=== PATIENT | male | born 1965 | race Caucasian/White ===

== ENCOUNTER 2016-09-07 12:54 | Emergency (ER) | payer MEDICARE ==
[~2016-09-07] VITALS: Ht 190.5 cm; Wt 108.9 kg
[~2016-09-07 12:54] MED LIST: AMBIEN10 M1 PO; ANUSOL HC30 GM R; AUGMENTIN 875 M1 TAB PO; BENADRYL25 M2 PO; BENADRYL25 MG; BENADRYL50 MG PO; CARTIA XT180 MG PO; CHANTIX1 M1 PO; CIPROFLOXACIN500 MG PO; CLINDAMYCIN HC300 MG PO; CORDROL20 MG PO; CYCLOBENZAPRINE10 MG PO; DAYPRO600 M1 PO; EES400 MG PO; ERYTHROMYCIN OPH1 GM OPH; FLAGYL500 MG PO; FLEXERIL10 MG PO; FLONASE ALLERG9.9 ML NAS; FOLIC ACID1 MG PO; IBU-8800 MG PO; IRON324 M1 PO; KELP TABLETS1 TAB PO; KELP1 TAB PO; LASIX40 MG PO; LEVOFLOXACIN500 MG PO; LYRICA50 MG PO; MAXALT10 MG; MAXALT10 MG PO; MEDROL DOSEPAK4 MG PO; MOBIC7.5 MG PO; MOTRIN800 MG PO; NAPROSYN500 MG PO; NASONEX0.05 MG/AC NAS; NASONEX0.05 MG/AC NS; NEURONTIN600 MG PO; NEURONTIN800 MG PO; NORFLEX100 MG PO; OXYGEN NAS; PERCOCET 325 MG1 TA2 PO; PHENERGAN W/DM120 ML PO; POTASSIUM20 MEQ PO; PREDNICOT20 MG PO; PREDNISONE10 MG PO; PREDNISONE20 MG PO; PRILOSEC20 MG PO; PYRIDIUM200 MG PO; ROBAXIN500 MG PO; ROBAXIN750 MG PO; ROBITUSSIN DM 105 ML PO; ROBITUSSIN DM120 ML PO; SPIRIVA18 MCG PO; TORADOL10 MG PO; TRAMADOL HCL50 MG PO; ULTRAM100 MG PO; ULTRAM50 MG PO; VALERIAN500 MG; VALIUM10 MG PO; VENTOLIN H0.09 MG/AC INH; VIBRAMYCIN100 MG PO; VICODIN 5/500 505 MG PO; VICODIN ES 7501 TA1 PO; VITAMIN D1000 IU PO; VITAMIN D2000 IU PO; VITAMIN D400 I1 PO; VITAMIN D50000 I1 PO; VITAMIN D50000 I2 PO; XANAX0.25 MG PO; XANAX2 MG PO; ZITHROMAX Z PA250 MG PO; ZITHROMAX250 MG PO; ZOLOFT50 MG PO; ZYRTEC10 MG PO
[2016-09-07 13:14] VITALS: BP 114/77
[2016-09-07] MEDS ORDERED: KEFLEX500 M1 PO (13:47)
== END 2016-09-07 14:51 | disposition home or self-care (01) ==
LOC: ED 12:54
DX: S80.862A Insect bite (nonvenomous), left lower leg, initial encounter (principal); F17.200 Nicotine dependence, unspecified, uncomplicated; Z98.890 Other specified postprocedural states; Z79.899 Other long term (current) drug therapy; Z91.040 Latex allergy status; Z88.6 Allergy status to analgesic agent; Z88.1 Allergy status to other antibiotic agents; W57.XXXA Bitten or stung by nonvenomous insect and other nonvenomous arthropods, initial encounter; Y93.89 Activity, other specified; Y92.89 Other specified places as the place of occurrence of the external cause; Y99.9 Unspecified external cause status

== ENCOUNTER → 2016-11-10 | Outpatient (CLI) | payer MEDICARE ==
[~2016-11-10] MED LIST changes: +KEFLEX500 M1 PO
== END | disposition home or self-care (01) ==
LOC: MRI 08:49
DX: M17.12 Unilateral primary osteoarthritis, left knee (principal); M25.462 Effusion, left knee; R60.9 Edema, unspecified

== ENCOUNTER 2017-04-25 13:01 | Emergency (ER) | payer MEDICARE ==
[~2017-04-25] VITALS: Ht 190.5 cm; Wt 122.5 kg
[2017-04-25 13:05] VITALS: BP 153/87
== END 2017-04-25 14:12 | disposition home or self-care (01) ==
LOC: ED 13:01
DX: S05.01XA Injury of conjunctiva and corneal abrasion without foreign body, right eye, initial encounter (principal); Z98.890 Other specified postprocedural states; Z79.899 Other long term (current) drug therapy; Z88.6 Allergy status to analgesic agent; Z91.040 Latex allergy status; Z88.1 Allergy status to other antibiotic agents; X58.XXXA Exposure to other specified factors, initial encounter; Y93.89 Activity, other specified; Y92.89 Other specified places as the place of occurrence of the external cause; Y99.9 Unspecified external cause status

== ENCOUNTER → 2017-08-16 | Outpatient (CLI) | payer MEDICARE | END | disposition home or self-care (01) | LOC: MRI 11:00 | DX: M79.9 Soft tissue disorder, unspecified (principal); R22.42 Localized swelling, mass and lump, left lower limb ==

== ENCOUNTER 2017-11-06 14:09 | Emergency (ER) | payer MEDICARE ==
[~2017-11-06] VITALS: Ht 193 cm; Wt 127.0 kg
[2017-11-06 14:14] VITALS: BP 134/78
[2017-11-06] MEDS ORDERED: WELLBUTRIN XL150 MG PO (14:16)
== END 2017-11-06 16:33 | disposition home or self-care (01) ==
LOC: ED 14:09
DX: S50.02XA Contusion of left elbow, initial encounter (principal); Z88.6 Allergy status to analgesic agent; Z91.040 Latex allergy status; Z88.8 Allergy status to other drugs, medicaments and biological substances; Z79.899 Other long term (current) drug therapy; W18.39XA Other fall on same level, initial encounter; Y93.89 Activity, other specified; Y92.89 Other specified places as the place of occurrence of the external cause; Y99.8 Other external cause status

== ENCOUNTER 2018-04-25 15:05 | Emergency (ER) | payer MEDICARE ==
[~2018-04-25] VITALS: Ht 195.5 cm; Wt 127.0 kg
[~2018-04-25 15:05] MED LIST changes: +WELLBUTRIN XL150 MG PO
[2018-04-25 15:09] VITALS: BP 155/89
== END 2018-04-25 16:07 | disposition home or self-care (01) ==
LOC: ED 15:05
DX: M54.5 Low back pain (principal); G89.29 Other chronic pain; Z88.6 Allergy status to analgesic agent; Z91.040 Latex allergy status; Z88.5 Allergy status to narcotic agent; Z88.8 Allergy status to other drugs, medicaments and biological substances; Z79.899 Other long term (current) drug therapy

== ENCOUNTER → 2018-05-03 | Outpatient (CLI) | payer MEDICARE ==
[~2018-05-03] MED LIST changes: +PREDNISONE20 M1 PO; +PROVENTIL HFA6.7 GM INH
[2018-05-03 12:31] LABS: URINE AMPHETAMINES < 1000 (1000ng/ml); URINE BARBITURATES < 200 (200ng/ml); URINE BENZODIAZEPINES < 200 (200ng/ml); URINE CANNABINOIDS (THC) > 50 (50ng/ml); URINE COCAINE < 300 (300ng/ml); URINE METHADONE < 300 (300ng/ml); URINE OPIATES < 300 (300ng/ml); URINE PHENCYCLIDINE < 25 (25ng/ml)
== END | disposition home or self-care (01) ==
LOC: RESCLI 04:43
PROVIDERS: Student in an Organized Health Care Education/Training Program
DX: E66.01 Morbid (severe) obesity due to excess calories (principal); F32.9 Major depressive disorder, single episode, unspecified; R20.2 Paresthesia of skin; E55.9 Vitamin D deficiency, unspecified; M54.41 Lumbago with sciatica, right side; G89.29 Other chronic pain; G62.9 Polyneuropathy, unspecified; E78.2 Mixed hyperlipidemia; I10 Essential (primary) hypertension; Z71.89 Other specified counseling; Z79.899 Other long term (current) drug therapy; Z90.49 Acquired absence of other specified parts of digestive tract; Z91.040 Latex allergy status; Z88.8 Allergy status to other drugs, medicaments and biological substances

== ENCOUNTER 2018-12-22 02:37 | Emergency (ER) | payer MEDICARE ==
[~2018-12-22] VITALS: Ht 193 cm; Wt 122.9 kg
[2018-12-22 02:38] VITALS: BP 134/75
[2018-12-22] MEDS ORDERED: KEFLEX500 M1 PO (03:15)
== END 2018-12-22 03:35 | disposition home or self-care (01) ==
LOC: ED 02:37
DX: S91.115A Laceration without foreign body of left lesser toe(s) without damage to nail, initial encounter (principal); J44.9 Chronic obstructive pulmonary disease, unspecified; I10 Essential (primary) hypertension; K21.9 Gastro-esophageal reflux disease without esophagitis; G43.909 Migraine, unspecified, not intractable, without status migrainosus; G62.9 Polyneuropathy, unspecified; Z79.899 Other long term (current) drug therapy; Z88.6 Allergy status to analgesic agent; Z91.040 Latex allergy status; Z88.8 Allergy status to other drugs, medicaments and biological substances; W45.8XXA Other foreign body or object entering through skin, initial encounter; Y93.89 Activity, other specified; Y92.89 Other specified places as the place of occurrence of the external cause; Y99.8 Other external cause status

== ENCOUNTER 2019-11-21 13:00 | Emergency (ER) | payer MEDICARE ==
[~2019-11-21] VITALS: Wt 118.8 kg
[2019-11-21 14:29] VITALS: BP 146/98
[2019-11-21] MEDS ORDERED: PREDNISONE20 M1 PO (16:02)
== END 2019-11-21 16:14 | disposition home or self-care (01) ==
LOC: ED 13:00
DX: M54.42 Lumbago with sciatica, left side (principal); Z88.6 Allergy status to analgesic agent; Z91.040 Latex allergy status; Z88.8 Allergy status to other drugs, medicaments and biological substances; Z79.899 Other long term (current) drug therapy

== ENCOUNTER 2020-08-11 12:43 | Emergency (ER) | payer MEDICARE ==
[~2020-08-11] VITALS: Ht 195.5 cm; Wt 119.3 kg
[2020-08-11] MEDS ORDERED: MEDROL DOSEPAK4 MG PO (13:40)
== END 2020-08-11 13:58 | disposition home or self-care (01) ==
LOC: ED 12:43
DX: S39.012A Strain of muscle, fascia and tendon of lower back, initial encounter (principal); Z79.82 Long term (current) use of aspirin; Z91.040 Latex allergy status; Z88.5 Allergy status to narcotic agent; Z79.899 Other long term (current) drug therapy; Z98.890 Other specified postprocedural states; X58.XXXA Exposure to other specified factors, initial encounter; Y93.89 Activity, other specified; Y92.89 Other specified places as the place of occurrence of the external cause; Y99.8 Other external cause status

== ENCOUNTER → 2021-04-13 | Outpatient (CLI) | payer MEDICARE | END | disposition home or self-care (01) | LOC: RAD 10:04 | PROVIDERS: ATTEND Internal Medicine | DX: M16.12 Unilateral primary osteoarthritis, left hip (principal) ==

== ENCOUNTER → 2021-06-25 | Outpatient (CLI) | payer MEDICARE | END | disposition home or self-care (01) | LOC: MRI 12:57 | PROVIDERS: ATTEND Internal Medicine | DX: M16.12 Unilateral primary osteoarthritis, left hip (principal) ==

== ENCOUNTER 2021-08-08 10:04 | Emergency (ER) | payer MEDICARE ==
[~2021-08-08] VITALS: Ht 182.8 cm; Wt 103.9 kg
[2021-08-08 10:16] VITALS: BP 162/80
== END 2021-08-08 11:16 | disposition home or self-care (01) ==
LOC: ED 10:04
DX: M54.50 Low back pain, unspecified (principal)

== ENCOUNTER 2022-08-14 10:51 | Emergency (ER) | payer OTHER ==
[~2022-08-14] VITALS: Ht 193 cm; Wt 113.4 kg
[2022-08-14 11:09] VITALS: BP 138/86
== END 2022-08-14 11:44 | disposition home or self-care (01) ==
LOC: ED 10:51
DX: L84 Corns and callosities (principal); Z88.6 Allergy status to analgesic agent; Z91.040 Latex allergy status; Z88.5 Allergy status to narcotic agent; Z88.8 Allergy status to other drugs, medicaments and biological substances; Z98.890 Other specified postprocedural states

== ENCOUNTER 2023-09-09 10:18 | Emergency (ER) | payer MEDICARE ==
[~2023-09-09] VITALS: Ht 193 cm; Wt 115.7 kg
[2023-09-09 10:29] VITALS: BP 141/81
[2023-09-09] MEDS ORDERED: ATORVASTATIN CA40 M1 PO (10:31)
[2023-09-09] MEDS ORDERED: VENLAFAXINE HYD75 M3 PO (10:31)
[2023-09-09 11:29] LABS: BASO # 0.1 10*3/uL (0.0-0.1); BASO % 0.4 % (0.0-1.0); EOS # 0.3 10*3/uL (0.0-0.4); EOS % 2.2 % (1.0-4.0); HEMATOCRIT 44.8 % (42.0-52.0); LYMPH # 2.5 10*3/uL (1.3-4.4); LYMPH % 22.6 % (27.0-41.0); MEAN CELL VOLUME 93.9 fl (80.0-94.0); MEAN CORPUSCULAR HGB 30.4 pg (27.0-31.0); MEAN CORPUSCULAR HGB CONC 32.4 g/dl (33.0-37.0); MEAN PLATELET VOLUME 11.8 fl (9.6-12.3); MONO # 0.7 10*3/uL (0.1-1.0); MONO % 6.5 % (3.0-9.0); NEUT # 7.6 10*3/uL (2.3-7.9); NEUT % 68.1 % (47.0-73.0); PLATELET COUNT AUTOMATED 142 10*3/uL (130-400); RED BLOOD COUNT 4.77 10*6/uL (4.50-5.90); WHITE BLOOD COUNT 11.2 10*3/uL (4.8-10.8)
[2023-09-09 11:47] LABS: BUN 6 mg/dl (9-23); CHLORIDE 107 mmol/L (98-107)
[2023-09-09 11:57] LABS: BILIRUBIN Negative (Negative); BLOOD 3+ (Negative); CLARITY Turbid (Clear); COLOR Dark Yellow (Yellow); GLUCOSE Negative (Negative); KETONE Trace (Negative); LEUKO ESTERASE 2+ (Negative); NITRITE Negative (Negative); PH 6.5 (4.5-8.0); SPECIFIC GRAVITY 1.025 (1.001-1.030)
[2023-09-09 12:03] LABS: RBC TNTC rbc/hpf (0-2); WBC TNTC wbc/hpf (0-5)
[2023-09-09] MEDS ORDERED: CIPRO500 MG PO (12:29)
[2023-09-09] MEDS ORDERED: Ciprofloxacin Hydrochloride 500 MG TAB PO ONE (12:30)
== END 2023-09-09 13:04 | disposition home or self-care (01) ==
LOC: ED 10:18
PROVIDERS: Nurse Practitioner Family
DX: N39.0 Urinary tract infection, site not specified (principal); J44.9 Chronic obstructive pulmonary disease, unspecified; I10 Essential (primary) hypertension; F32.A Depression, unspecified; F41.9 Anxiety disorder, unspecified; K21.9 Gastro-esophageal reflux disease without esophagitis; G43.909 Migraine, unspecified, not intractable, without status migrainosus; Z88.6 Allergy status to analgesic agent; Z91.040 Latex allergy status; Z88.5 Allergy status to narcotic agent; Z88.8 Allergy status to other drugs, medicaments and biological substances; Z98.890 Other specified postprocedural states

== ENCOUNTER → 2023-10-04 | Outpatient (CLI) | payer MEDICARE ==
[~2023-10-04] MED LIST changes: +ATORVASTATIN CA40 M1 PO; +CIPRO500 MG PO; +VENLAFAXINE HYD75 M3 PO
[2023-10-04 13:40] LABS: BILIRUBIN Negative (Negative); BLOOD Negative (Negative); CLARITY Clear (Clear); COLOR Yellow (Yellow); GLUCOSE Negative (Negative); KETONE Negative (Negative); LEUKO ESTERASE Negative (Negative); NITRITE Negative (Negative); PH 5.5 (4.5-8.0)
[2023-10-04 14:01] LABS: RBC 0-2 rbc/hpf (0-2); WBC 0-2 wbc/hpf (0-5)
== END | disposition home or self-care (01) ==
LOC: LAB 13:19
PROVIDERS: ATTEND Family Medicine
DX: R31.9 Hematuria, unspecified (principal); N39.0 Urinary tract infection, site not specified

== ENCOUNTER → 2023-11-14 | Outpatient (CLI) | payer MEDICARE | END | disposition home or self-care (01) | LOC: CT 08:00 | PROVIDERS: ATTEND Internal Medicine Critical Care Medicine | DX: R91.1 Solitary pulmonary nodule (principal); J84.89 Other specified interstitial pulmonary diseases; J84.10 Pulmonary fibrosis, unspecified ==

== ENCOUNTER → 2023-12-25 | Outpatient (CLI) | payer MEDICARE ==
[2023-12-25 10:21] LABS: HEMATOCRIT 46.8 % (42.0-52.0); MEAN CELL VOLUME 92.5 fl (80.0-94.0); MEAN CORPUSCULAR HGB CONC 32.5 g/dl (33.0-37.0); MEAN PLATELET VOLUME 12.3 fl (9.6-12.3); RED BLOOD COUNT 5.06 10*6/uL (4.50-5.90); WHITE BLOOD COUNT 7.5 10*3/uL (4.8-10.8)
[2023-12-25 10:59] LABS: VITAMIN D, 25-HYDROXY 15.4 ng/mL (30-100)
[2023-12-25 11:01] LABS: ALKALINE PHOSPHATASE 102 U/L (46-116); BUN 14 mg/dl (9-23); CHLORIDE 106 mmol/L (98-107); CHOLESTEROL 147 mg/dL (<200); CPK 23 U/L (34-171); LDL CHOLESTEROL 85 mg/dL (9-159); POTASSIUM 4.1 mmol/L (3.4-5.1); SGPT/ALT 8 U/L (5-49); TOTAL PROTEIN 7.2 gm/dL (6.0-8.0); TRIGLYCERIDES 139 mg/dl (<150)
== END | disposition home or self-care (01) ==
LOC: LAB 09:49
PROVIDERS: ATTEND Family Medicine
DX: Z12.5 Encounter for screening for malignant neoplasm of prostate (principal); E78.00 Pure hypercholesterolemia, unspecified; E55.9 Vitamin D deficiency, unspecified; R53.82 Chronic fatigue, unspecified; F32.9 Major depressive disorder, single episode, unspecified; F41.1 Generalized anxiety disorder; E74.00 Glycogen storage disease, unspecified

== ENCOUNTER → 2024-09-23 | Outpatient (CLI) | payer OTHER | END | disposition home or self-care (01) | LOC: CT 13:44 | PROVIDERS: ATTEND Internal Medicine Pulmonary Disease | DX: J84.89 Other specified interstitial pulmonary diseases (principal); R91.1 Solitary pulmonary nodule; J98.4 Other disorders of lung; I25.10 Atherosclerotic heart disease of native coronary artery without angina pectoris ==

== ENCOUNTER 2024-10-28 14:12 | Emergency (ER) | payer OTHER ==
[~2024-10-28] VITALS: Ht 193 cm; Wt 107.0 kg
[2024-10-28 14:35] VITALS: BP 135/81
[2024-10-28] MEDS ORDERED: PREDNISONE20 M1 PO (15:52)
== END 2024-10-28 16:25 | disposition home or self-care (01) ==
LOC: ED 14:12
DX: S39.012A Strain of muscle, fascia and tendon of lower back, initial encounter (principal); I10 Essential (primary) hypertension; J45.909 Unspecified asthma, uncomplicated; K21.9 Gastro-esophageal reflux disease without esophagitis; F32.A Depression, unspecified; F41.9 Anxiety disorder, unspecified; Z79.899 Other long term (current) drug therapy; Z88.5 Allergy status to narcotic agent; Z88.6 Allergy status to analgesic agent; Z88.8 Allergy status to other drugs, medicaments and biological substances; Z91.040 Latex allergy status; Z98.890 Other specified postprocedural states; X58.XXXA Exposure to other specified factors, initial encounter; Y93.89 Activity, other specified; Y92.89 Other specified places as the place of occurrence of the external cause; Y99.8 Other external cause status

== ENCOUNTER 2024-11-11 12:05 | Emergency (ER) | payer OTHER ==
[~2024-11-11] VITALS: Wt 108.0 kg
[2024-11-11 12:13] VITALS: BP 134/81
== END 2024-11-11 12:58 | disposition home or self-care (01) ==
LOC: ED 12:05
DX: G89.29 Other chronic pain (principal); M54.42 Lumbago with sciatica, left side; J44.9 Chronic obstructive pulmonary disease, unspecified; I10 Essential (primary) hypertension; F32.A Depression, unspecified; F41.9 Anxiety disorder, unspecified; G43.909 Migraine, unspecified, not intractable, without status migrainosus; Z98.890 Other specified postprocedural states; Z91.040 Latex allergy status; Z88.5 Allergy status to narcotic agent; Z88.6 Allergy status to analgesic agent; Z88.8 Allergy status to other drugs, medicaments and biological substances

== ENCOUNTER → 2024-12-10 | Outpatient (CLI) | payer OTHER | END | disposition home or self-care (01) | LOC: CARD 12:40 | PROVIDERS: ATTEND Internal Medicine Cardiovascular Disease | DX: I35.1 Nonrheumatic aortic (valve) insufficiency (principal); R60.0 Localized edema; R06.09 Other forms of dyspnea ==